=== PATIENT | male | born 1940 | race Caucasian/White ===

== ENCOUNTER → 2017-08-27 | Outpatient (CLI) | payer MEDICARE, BC ==
[~2017-08-27] MED LIST: CELEXA40 MG PO; FLOMAX0.4 MG PO; HYDROCODON-ACE1 EA12 PO; HYDROCODON-ACE1 EACH PO; KEFLEX500 MG PO; LEVAQUIN500 MG PO; MIRALAX17 GM PO; MULTI-BETIC TA1 EACH PO; NORCO 10-325 T1 EACH PO; PYRIDIUM200 MG PO; TOBREX5 ML OP
== END ==
LOC: CARD 14:02
PROVIDERS: ATTEND Family Medicine
DX: R20.8 Other disturbances of skin sensation (principal); I73.9 Peripheral vascular disease, unspecified
CPT/HCPCS: 93922; 93925

== ENCOUNTER → 2018-01-02 | Outpatient (CLI) | payer MEDICARE, BC ==
--- NOTE | 2018-01-02 12:47 | Diagnostic Imaging Report ---
EXAM: ABDOMEN COMP INCL UPR or DECUB, DATE: 01/02/2018 11:55 AM INDICATION: Abdominal distention, shortness of breath COMPARISON: None FINDINGS: LINES/TUBES: None BOWEL PATTERN: No evidence for obstruction. SOFT TISSUES: No abnormal calcifications. No mass effect. No free air under the diaphragm or concerning air-fluid levels within the visualized abdomen on upright view. LUNG BASES: Retrocardiac opacity. BONES: No acute findings. IMPRESSION: Nonobstructive bowel gas pattern. Retrocardiac opacity which can be further evaluated with dedicated chest radiograph. Signed by: DR. Simon Ramos MD on 01/02/2018 12:43 PM
== END ==
LOC: RAD 11:42
PROVIDERS: ATTEND Family Medicine
DX: R14.0 Abdominal distension (gaseous) (principal)

== ENCOUNTER → 2018-09-28 | Outpatient (CLI) | payer MEDICARE, OTHER ==
[~2018-09-28] MED LIST changes: +IOPAMIDOL 370 MG/ML 200 ML INFUS..BTL INJ ONE; +SODIUM CHLORIDE 0.9% 250ML 250 ML ONE
[2018-09-28 13:08] LABS: BLOOD UREA NITROGEN 20 mg/dL (7-26); BUN/CREATININE RATIO 23 (6-25); CREATININE, SERUM 0.88 mg/dL (0.72-1.25); EST GLOMERULAR FILTRATION RATE > 60 ML/MIN (60-)
--- NOTE | 2018-09-28 15:10 | Diagnostic Imaging Report ---
EXAMINATION: CT of the abdomen and pelvis with and without contrast. TECHNIQUE: Spiral CT images of the abdomen and pelvis were performed from the lung bases to the lesser trochanters before and after the intravenous administration of 100 cc Isovue-370. Imaging was performed in the prone position with expiratory phase per hematuria protocol. Coronal and sagittal reformatted images were obtained. COMPARISON: CT abdomen and pelvis without contrast 05/06/2017. CLINICAL HISTORY:Asymptomatic microscopic hematuria DISCUSSION: ABDOMEN/PELVIS: LOWER THORAX:Subsegmental atelectasis versus fibrotic change in the dependent lingula and right middle lobe. HEPATOBILIARY: No focal hepatic lesions. No intra-or extrahepatic biliary ductal dilation. Gallbladder has been removed. SPLEEN: No splenomegaly. PANCREAS: No focal masses or ductal dilatation. ADRENALS: No adrenal nodules. KIDNEYS/URETERS: Right renal pelvic calculus has increased in size, now measuring approximately 12 mm transversely (previously 7 mm). No additional renal, ureteral, or bladder calculi. No renal mass lesions. Mild right hydronephrosis without calyceal blunting. Excretory phase images show no additional filling defects in the upper collecting systems, proximal left ureter, right ureter, or urinary bladder. The distal left ureter is not opacified, presumably related to scan timing. No periureteral mass or inflammation is appreciated. PELVIC ORGANS/BLADDER: The prostate is enlarged, measuring 5.5 cm transversely, with mass effect upon the bladder base. The urinary bladder is otherwise unremarkable. PERITONEUM/RETROPERITONEUM: No ascites or pneumoperitoneum. LYMPH NODES: No pelvic sidewall, retroperitoneal, or mesenteric lymphadenopathy. VESSELS: Abdominal aorta, major branch vessels, and iliac arterial systems are patent with calcified and noncalcified atherosclerotic plaque. No abdominal aortic aneurysm. GI TRACT: The large bowel shows no evidence of distention or wall thickening. Sigmoid and descending colon diverticula without adjacent inflammatory change. Normal appendix. No small bowel dilatation to suggest obstruction. BONES AND SOFT TISSUE: No bony destructive lesions. Small fat-containing umbilical hernia. IMPRESSION: Right ureteropelvic junction calculus has increased in size, now measuring 11 mm, with mild hydronephrosis. No additional renal, ureteral, or bladder calculi or collecting system filling defects. Prostatomegaly with mass effect upon the bladder base. Additional findings include atherosclerotic vascular disease and large bowel diverticulosis without findings of diverticulitis. Signed by: Dr. Edward Rm M.D. on 09/28/2018 3:07 PM
== END ==
LOC: CT 12:10
PROVIDERS: ATTEND Urology
DX: R31.21 Asymptomatic microscopic hematuria (principal)
CPT/HCPCS: 36415; 74178; 82565; 84520; J7050; Q9967

== ENCOUNTER → 2018-11-13 | Day surgery (SDC) | payer MEDICARE, OTHER ==
[2018-11-11 12:32] LABS: BASOPHILS % 0.6 % (0.0-1.0); EOSINOPHILS # (AUTO) 0.4 (0.0-0.4); EOSINOPHILS % 5.3 % (0.0-6.0); HEMATOCRIT 42.8 % (38.2-49.6); HEMOGLOBIN 14.6 g/dL (14.0-18.0); MEAN CORPUSCULAR HEMOGLOBIN 31.5 pg (28-32); MEAN CORPUSCULAR HGB CONC 34.1 g/dL (31-35); MEAN CORPUSCULAR VOLUME 92.4 fL (81-99); MONOCYTES # (AUTO) 0.6 (0.2-0.8); MONOCYTES % 8.7 % (4.4-11.3); PLATELET COUNT 253 x10e3/uL (140-360); RED BLOOD COUNT 4.63 x10e6/uL (4.3-5.7); RED CELL DISTRIBUTION WIDTH 13.4 % (11.7-14.4)
--- NOTE | 2018-11-11 12:50 | Diagnostic Imaging Report ---
EXAM: CHEST 2 VIEWS, PA and lateral DATE: 11/11/2018 Time stamp on exam: 11:51 AM INDICATION: Preoperative for a urologic procedure COMPARISON: None FINDINGS: LINES/TUBES: None LUNGS: No consolidations or edema. PLEURA: No effusions or pneumothorax. HEART AND MEDIASTINUM: Normal size and contour. BONES AND SOFT TISSUES: No acute findings. Osteophyte in the lower thoracic spine. IMPRESSION: No acute thoracic abnormality. Signed by: Dr. Jimbo Hair DO on 11/11/2018 12:47 PM
[~2018-11-13] MED LIST changes: +B&O 60MG R/S 60 MG SUPP PR ONE; +CEFTRIAXONE SOD 1 GM/NS 50 ML 50 ML IV ONE; +CYMBALTA60 MG PO; +DESFLURANE 240 ML BTL INH ONE; +DEXAMETHASONE SOD PHOS INJ 4 MG/ML VIAL ONE; +FENTANYL CITRATE/PF 100MCG/2 ML INJ ONE; +GABAPENTIN300 MG PO; +HYDROCODON-ACE1 EAC9 PO; -IOPAMIDOL 370 MG/ML 200 ML INFUS..BTL INJ ONE; +IOPAMIDOL 610MG/1ML 300 MG/ML VIAL IV ONE; +LIDOCAINE HCL 2% LOCAL INJ 5 ML SDV VIAL INJ ONE; +LYRICA50 MG; +METOCLOPRAMIDE HCL 10 MG/2ML VIAL ONE; +MIDAZOLAM HCL 2 MG/2 ML VIAL ONE; +ONDANSETRON HCL INJ 2MG/ML 2ML 2 MG/ML VIAL ONE; +PROPOFOL IV EMULSION 10 MG/ML 20 ML VIAL ONE; -SODIUM CHLORIDE 0.9% 250ML 250 ML ONE
--- OUTSIDE RECORDS SUMMARY | 2018-11-13 05:56 | XMS REPORT ---
Author Author [facility] Address Unknown Phone Unavailable Care Team Providers Care Counter Waiter Name Role Phone CECILIA SOL Unavailable Unavailable REEMA KAHN Unavailable Unavailable Problems This patient has no known problems. Allergies, Adverse Reactions, Alerts This patient has no known allergies or adverse reactions. Medications This patient has no known medications. Results Test Description Test Time Test Comments Text Results Atomic Results Result Comments CHEST 2 VIEWS 2018-11-11 12:44:00 [place] [address] Patient Name: YAAKOV PEREZ MR #: [id number] : 1940 Age/Sex: 78/M Req #: [id number] Adm Physician: Ordered by: CECILIA SOL MD Report #: [id number] Location: OR Room/Bed: Procedure: [id number] DX/CHEST 2 VIEWS Exam Date: Exam Time: REPORT STATUS: Signed EXAM: CHEST 2 VIEWS, PA and lateral DATE: 11/11/2018 Time stamp on exam: 11: 51 AM INDICATION: Preoperative for a urologic procedure COMPARISON: None FINDINGS: LINES/TUBES: None LUNGS: No consolidations or edema. PLEURA: No effusions or pneumothorax. HEART AND MEDIASTINUM: Normal size and contour. BONES AND SOFT TISSUES: No acute findings. Osteophyte in the lower thoracic spine. IMPRESSION: No acute thoracic abnormality. Signed by: Dr. Lisa Hair DO on 11/11/2018 12:47 PM Dictated By: LISA HAIR DO 1247 Transcribed By: LORE on 11/11/18 1247 COPY TO: CECILIA SOL MD CT ABDOMEN/PELVIS WOW 2018-09-28 14:49:00 [place] [address] Patient Name: YAAKOV PEREZ MR #: [id number] : 1940 Age/Sex: 78/M Req #: [id number] Adm Physician: Ordered by: CECILIA SOL MD Report #: [id number] Location: CT Room/Bed: Procedure: [id number] CT/CT ABDOMEN/PELVIS WOW Exam Date: 09/28/18 Exam Time: 1330 REPORT STATUS: Signed EXAMINATION: CT of the abdomen and pelvis with and without contrast. TECHNIQUE: Spiral CT images of the abdomen and pelvis were performed from the lung bases to the lesser trochanters before and after the intravenous administration of 100 cc Isovue-370. Imaging was performed in the prone position with expiratory phase per hematuria protocol. Coronal and sagittal reformatted images were obtained. COMPARISON: CT abdomen and pelvis without contrast 05/06/2017. CLINICAL HISTORY:Asymptomatic microscopic hematuria DISCUSSION: ABDOMEN/PELVIS: LOWER THORAX:Subsegmental atelectasis versus fibrotic change in the dependent lingula and right middle lobe. HEPATOBILIARY: No focal hepatic lesions. No intra-or extrahepatic biliary ductal dilation. Gallbladder has been removed. SPLEEN: No splenomegaly. PANCREAS: No focal masses or ductal dilatation. ADRENALS: No adrenal nodules. KIDNEYS/URETERS: Right renal pelvic calculus has increased in size, now measuring approximately 12 mm transversely (previously 7 mm). No additional renal, ureteral, or bladder calculi. No renal mass lesions. Mild right hydronephrosis without calyceal blunting. Excretory phase images show no additional filling defects in the upper collecting systems, proximal left ureter, right ureter, or urinary bladder. The distal left ureter is not opacified, presumably related to scan timing. No periureteral mass or inflammation is appreciated. PELVIC ORGANS/BLADDER: The prostate is enlarged, measuring 5.5 cm transversely, with mass effect upon the bladder base. The urinary bladder is otherwise unremarka ble. PERITONEUM/RETROPERITONEUM: No ascites or pneumoperitoneum. LYMPH NODES: No pelvic sidewall, retroperitoneal, or mesenteric lymphadenopathy. VESSELS: Abdominal aorta, major branch vessels, and iliac arterial systems are patent with calcified and noncalcified atherosclerotic plaque. No abdominal aortic aneurysm. GI TRACT: The large bowel shows no evidence of distention or wall thickening. Sigmoid and descending colon diverticula without adjacent inflammatory change. Normal appendix. No small bowel dilatation to suggest obstruction. BONES AND SOFT TISSUE: No bony destructive lesions. Small fat-containing umbilical hernia. IMPRESSION: Right ureteropelvic junction calculus has increased in size, now measuring 11 mm, with mild hydronephrosis. No additional renal, ureteral, or bladder calculi or collecting system filling defects. Prostatomegaly with mass effect upon the bladder base. Additional findings include atherosclerotic vascular disease and large bowel diverticulosis without findings of diverticulitis. Signed by: Dr. Nilson Small M.D. on 09/28/2018 3:07 PM Dictated By: NILSON SMALL MD 1507 Transcribed By: LORE on 09/28/18 1507 COPY TO: CECILIA SOL MD ABDOMEN COMP INCL UPR or 2018-01-02 12:41:00 [place] [address] Patient Name: YAAKOV PEREZ MR #: [id number] : 1940 Age/Sex: 77/M Req #: [id number] Adm Physician: Ordered by: REEMA KAHN MD Report #: [id number] Location: RAD Room/Bed: Procedure: [id number] DX/ABDOMEN COMP INCL UPR or DECUB Exam Date: 01/02/18 Exam Time: 1153 REPORT STATUS: Signed EXAM: ABDOMEN COMP INCL UPR or DECUB, DATE: 01/02/2018 11:55 AM INDICATION: Abdominal distention, shortness of breath COMPARISON: None FINDINGS: LINES/TUBES: None BOWEL PATTERN: No evidence for obstruction. SOFT TISSUES: No abnormal calcifications. No mass effect. No free air under the diaphragm or concerning air-fluid levels within the visualized abdomen on upright view. LUNG BASES: Retrocardiac opacity. BONES: No acute findings. IMPRESSION: Nonobstructive bowel gas pattern. Retrocardiac opacity which can be further evaluated with dedicated chest radiograph. Signed by: DR. Simon Sheehan MD on 01/02/2018 12:43 PM Dictated By: SIMON SHEEHAN MD 124 Transcribed By: LORE on 01/02/18 1243 COPY TO: REEMA KAHN MD CT ABDOMEN/PELVIS [place] [address] Patient Name: YAAKOV PEREZ MR #: [id number] : 1940 Age/Sex: 76/M Req #: [id number] Adm Physician: Ordered by: CECILIA SOL MD Report #: [id number] Location: CT Room/Bed: Procedure: [id number] CT/CT ABDOMEN/PELVIS WO Exam Date: 05/06/17 Exam Time: 1320 REPORT STATUS: Signed PROCEDURE: CT ABDOMEN AND PELVIS WITHOUT CONTRAST TECHNIQUE: The abdomen and pelvis were scanned utilizing a multidetector helical scanner from the diaphragm to the lesser trochanter. No oral or intravenous contrast was administered per renal stone protocol. Coronal and sagittal multiplanar reformations were obtained. COMPARISON: CT abdomen and pelvis without contrast 10/25/2013. INDICATIONS: RIGHT FLANK PAIN FINDINGS: ABSENCE OF INTRAVENOUS CONTRAST DECREASES SENSITIVITY FOR DETECTION OF FOCAL LESIONS AND VASCULAR PATHOLOGY. LOWER THORAX: Minimal subsegmental atelectasis or scar in the dependent lower lobes, right greater than left. No pleural or pericardial effusion. HEPATOBILIARY: No focal hepatic lesions. No biliary ductal dilatation. SPLEEN: No splenomegaly. PANCREAS: No focal masses or ductal dilatation. ADRENALS: No adrenal nodules. KIDNEYS/URETERS: 6-7 mm calculus lies within the right renal pelvis, seen on series 3 image 65. No hydronephrosis. No additional renal, ureteral, or bladder calculi. Nonspecific bilateral perinephric fat stranding is unchanged compared to the prior examination. No gross renal mass lesion. PELVIC ORGANS/BLADDER: The urinary bladder is unremarkable. The prostate is enlarged, measuring 5.4 cm in transverse dimension. Coarse calcification in the central aspect of the prostate. Seminal vesicles are unremarkable. PERITONEUM / RETROPERITONEUM: No ascites. No pneumoperitoneum. LYMPH NODES: No pelvic sidewall, retroperitoneal, or mesenteric lymphadenopathy. VESSELS: There is atherosclerotic calcification of the abdominal aorta and major branch vessels, without aneurysmal dilatation. There is a single left renal artery and 2 right renal arteries. GI TRACT: The large bowel is notable for multiple diverticula along the course of the sigmoid colon, without wall thickening or adjacent inflammatory change. The large bowel otherwise shows no evidence of distention or wall thickening. The appendix is normal. No small bowel dilatation to suggest obstruction. BONES AND SOFT TISSUES: Midline umbilical hernia contains omental fat and a short segment of small bowel, without evidence of obstruction or inflammatory change. Otherwise no focal soft tissue abnormalities. 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 IMPRESSION: 6-7 mm nonobstructing right renal calculus. Small umbilical hernia contains a short segment of small bowel without evidence of obstruction or inflammatory change. Atherosclerotic vascular disease. Sigmoid diverticulosis without evidence of diverticulitis. Dictated by: Nilson Small M.D. on 05/06/2017 at 13:55 Electronically approved by: Nilson Small M.D. on 05/06/2017 at 13:55 Dictated By: NILSON SMALL MD 1355 Transcribed By: SOLIS on 05/06/17 1355 COPY TO: CECILIA SOL MD ABDOMEN-1VIEW (KUB) [place] [address] Patient Name: YAAKOV PEREZ MR #: [id number] : 1940 Age/Sex: 76/M Req #: [id number] Adm Physician: Ordered by: CECILIA SOL MD Report #: [id number] Location: [facility] Room/Bed: Procedure: [id number] DX/ABDOMEN-1VIEW (KUB) Exam Date: 04/15/17 Exam Time: 1015 REPORT STATUS: Signed PROCEDURE: ABDOMEN-1VIEW (KUB) TECHNIQUE: Supine AP abdomen totaling 2 radiographs INDICATION: Calculus of kidney COMPARISON: [facility], DX, ABDOMEN-1VIEW (KUB), 09/30/2016, 10:12. FINDINGS: See conclusion. CONCLUSION: 1. 0.9 and 0.5 cm right inferior pole stones. 2. No calcifications over the left kidney. 3. Left pelvic phlebolith. 4. Normal bowel gas pattern. 5. Intact skeleton. Dictated by: Mariajose Murillo M.D. on 04/15/2017 at 10:48 Electronically approved by: Mariajose Murillo M.D. on 04/15/2017 at 10:48 Dictated By: MARIAJOSE MURILLO MD 1048 Transcribed By: SOLIS on 04/15/178 COPY TO: CECILIA SOL MD
--- OUTSIDE RECORDS SUMMARY | 2018-11-13 05:56 | XMS REPORT | Clinical Summary ---
Author Author [facility] Address Unknown Phone Unavailable Care Team Providers Care Neurology Technician Name Role Phone Henrry Ruiz MD PCP Allergies No Known Allergies Medications End Date Status Medication Sig Dispensed Refills Start Date Active HYDROcodone-acetaminophen TAKE 1 T PO 0 (NORCO 10-325) 10-325 mg QID PRN P 6 per tablet Active Problems Problem Noted Date Bimalleolar ankle fracture 02/13/2016 Immunizations Name Dates Previously Given Next Due Influenza Whole 03/07/2017 Social History Date Tobacco Use Types Packs/Day Years Used Never Smoker Sex Assigned at Date Recorded Not on file Industry Job Start Date Occupation Not on file Not on file Not on file Travel End Travel History Travel Start No recent travel history available. Last Filed Vital Signs Not on file Plan of Treatment Health Maintenance Due Date Last Done Comments COLONOSCOPY SCREENING 1992 SHINGLES VACCINES (#1) 1992 65+ PNEUMOCOCCAL VACCINE 2007 (1 of 2 - PCV13) INFLUENZA VACCINE 12/24/2018 03/07/2017 Results Not on fileafter 11/12/2017 Insurance Type Payer Benefit Subscriber ID Effective Phone Address Plan / Dates Group Medicare MEDICARE MEDICARE xxxxxxxxxx 2007-P [place], PART A AND resent [place] B PPO BCBS BCBS xxxxxxxxxxxx 2015- CHOICE Present PPO/AMY LORENZO PPO Advance Directives Patient has advance care planning documents on file. For more information, russell obrien contact: Harsh Mendosa [address] [place] [address]
[2018-11-13 10:26] VITALS: BP 136/71
--- NOTE | 2018-12-24 22:47 | Operative Report ---
DATE OF PROCEDURE: 11/13/2018 SURGEON: Fracisco Miles MD PREOPERATIVE DIAGNOSES: 1. Right nephrolithiasis. 2. Impending renal colic. POSTOPERATIVE DIAGNOSES: 1. Right nephrolithiasis. 2. Impending renal colic. OPERATION PERFORMED: 1. Right-sided extracorporeal shockwave lithotripsy (separate staged procedure from separate approach for the nephrolithiasis). 2. Cystourethroscopy with bilateral ureteral catheterization, retrograde ureteropyelography, and insertion of right indwelling ureteral stent (separate procedure performed to relieve the renal colic). 3. Interpretation of retrograde ureteropyelography. ANESTHESIA: General. COMPLICATIONS: None. CLINICAL SUMMARY: Renato Youngblood is a 78-year-old man with urolithiasis. He was brought for the above procedures. He is aware of the risks of bleeding, infection, injury to adjacent structures, need for additional procedures, and elected to proceed. OPERATIVE PROCEDURE IN DETAIL: Informed consent was verified. Renato Youngblood was properly identified, taken to the operating room, placed on the lithotripsy table in supine position. Anesthesia was uneventfully begun. The patient's right nephrolithiasis was localized with biplanar fluoroscopy. A total of 3000 shocks were delivered to the 12 mm stone that was located in the mid calyx. Fragmentation was noted. The patient was then carefully and gently repositioned in dorsal lithotomy position with all pressure points well padded. His genitalia were prepared and draped in usual sterile fashion. The cystoscope sheath with the visual obturator in place was atraumatically inserted into the patient's urethra, it was guided down the unremarkable urethra through the normal sphincteric region, through the prostate bed, which was significant for visual obstructing BPH and into the patient's bladder. Panendoscopy revealed some tracheal trabeculations, but normally positioned configured ureteral orifices were identified. A ureteral catheter was used to cannulate each ureter and retrograde ureteral pyelograms were performed. We then placed a guidewire into the right ureter. We identified a small stone that was already emerging at the ureteral orifice. With cystoscopic fluoroscopic guidance, a right-sided indwelling ureteral stent was then placed, it was coiled in the patient's kidney as well as the patient's bladder. The retaining suture was cut short. Interpretation of retrograde ureteropyelography contrast was instilled in a retrograde fashion bilaterally. On the right hand side, there were filling defects corresponding to the stone and blood clots. The stent was in good position, coiled the patient's kidneys as well as the patient's bladder at the end of the case. The left hand side exhibited no hydronephrosis, calyces that were delicate, no filling defects and unobstructed drainage was observed fluoroscopically. A belladonna and opium suppository were placed. The patient was uneventfully reversed from anesthesia and taken to recovery room in stable condition. Explicit postop instructions were given. We will plan on returning the patient to the operating room after sometime to remove the stent and perform right ureteroscopy and hopefully render the patient stent free and stone free. Fracisco Miles MD [place]/MODL /[id number]
== END | disposition home or self-care (01) ==
LOC: OR 05:50
PROVIDERS: ATTEND Urology
DX: N20.0 Calculus of kidney (principal); N40.0 Benign prostatic hyperplasia without lower urinary tract symptoms; F32.9 Major depressive disorder, single episode, unspecified; I44.0 Atrioventricular block, first degree; I71.4 Abdominal aortic aneurysm, without rupture; M54.5 Low back pain; M79.606 Pain in leg, unspecified; R42 Dizziness and giddiness; Z01.810 Encounter for preprocedural cardiovascular examination; Z01.812 Encounter for preprocedural laboratory examination; Z01.818 Encounter for other preprocedural examination; Z87.891 Personal history of nicotine dependence
CPT/HCPCS: 36415; 50590; 52332; 71046; 85025; 93005; C1758; C2617; J0696; J1100; J2001; J2250; J2405; J2704; J2765; Q9967; J3010

== ENCOUNTER → 2018-12-18 | Day surgery (SDC) | payer MEDICARE, OTHER ==
[~2018-12-18] MED LIST changes: -DESFLURANE 240 ML BTL INH ONE; -METOCLOPRAMIDE HCL 10 MG/2ML VIAL ONE; -MIDAZOLAM HCL 2 MG/2 ML VIAL ONE; -ONDANSETRON HCL INJ 2MG/ML 2ML 2 MG/ML VIAL ONE; +SEVOFLURANE INHAL SOLN 250 ML PEN BTL ONE
--- OUTSIDE RECORDS SUMMARY | 2018-12-18 08:17 | XMS REPORT | Clinical Summary ---
Author Author [facility] Address Unknown Phone Unavailable Care Team Providers Care Crystal Attacher Name Role Phone Henrry Ruiz MD PCP [...] VACCINE 12/24/2018 03/07/2017 Results Not on fileafter 12/17/2017 Insurance Type Payer Benefit Subscriber ID Effective Phone Address Plan / Dates Group Medicare MEDICARE MEDICARE xxxxxxxxxx 2007-P [place], PART A AND resent [place] B PPO BCBS BCBS xxxxxxxxxxxx 2015- CHOICE Present PPO/AMY LORENZO PPO Advance Directives Patient has advance care planning documents on file. For more information, russell obrien contact: Harsh Menodsa [address] [place] [address]
--- NOTE | 2018-12-18 09:24 | Diagnostic Imaging Report ---
Exam: KUB - 2 views Clinical History: Preoperative Comparison: CT abdomen pelvis of 09/28/2018, KUB of 01/02/2018 Findings: Interval placement of right internal nephroureteral stent. There is an 8 mm calculus overlying the lower pole of the right kidney. No other calculi identified. Phleboliths in the pelvis. Nonobstructive bowel gas pattern. No free air. Degenerative changes of the lower lumbar spine. Impression: Interval placement of right internal nephroureteral stent. 8 mm right lower pole renal calculus. Signed by: Evgeny Lock MD on 12/18/2018 9:20 AM
[2018-12-18 13:30] VITALS: BP 150/82
--- NOTE | 2019-02-18 05:20 | Operative Report ---
DATE OF PROCEDURE: 12/18/2018 SURGEON: Fracisco Miles MD PREOPERATIVE DIAGNOSES: 1. Right nephrolithiasis. 2. Right hydronephrosis. 3. Right indwelling ureteral stent. POSTOPERATIVE DIAGNOSES: 1. Right nephrolithiasis. 2. Right hydronephrosis. 3. Right indwelling ureteral stent. OPERATION PERFORMED: Note these were all staged procedures as part of multi-staged and multi-step process in managing the patient's recurrent urolithiasis. 1. Cystourethroscopy with complicated removal of right indwelling ureteral stent (separate procedure performed with separate scope for the diagnosis of stent). 2. Repeated and recurrent right ureteral pyeloscopy with stone manipulation and extraction (separate procedure performed for numerous stones). 3. Radiological services for supervision and interpretation of ureteroscopy. 4. Interpretation of retrograde ureteropyelography. 5. Cystourethroscopy with insertion of right indwelling ureteral stent (separately performed to relieve the hydronephrosis). ANESTHESIA: General. COMPLICATIONS: None. CLINICAL SUMMARY: Renato Youngblood is a 78-year-old man, who underwent a stone procedure. He has a stent in place. He is brought for the above procedures. He is aware of the risks of bleeding, infection, injury to adjacent structures, need for additional procedures, and elected to proceed. OPERATIVE PROCEDURE IN DETAIL: Informed consent was verified. Renato Youngblood was properly identified and taken to the operative room and placed on the cystoscopy table in supine position. Anesthesia was uneventfully begun. The patient was then carefully gently repositioned in the dorsal lithotomy position with all pressure points well padded. His genitalia were prepared and draped in usual sterile fashion. The cystoscope sheath with the visual obturator in place was atraumatically inserted. The patient's urethra was guided unremarkably urethra through the normal sphincteric region through the prostate bed, which was significant for visually obstructing BPH. We entered the patient's bladder and drained it. Panendoscopy revealed trabeculations, but no tumors, no suspicious lesions. The stent was noted to be emerging from the right ureteral orifice. A guidewire was then placed alongside the stent and guided to the level of the patient's kidney. The stent was then grasped, completely removed, and discarded. Flexible ureteroscope was then brought up over the guidewire and guided up to the level of the patient's kidney. Panendoscopy revealed numerous stones. The guidewire was replaced. A flexible ureteroscopy sheath was utilized to protect the ureter. We performed numerous passes with the ureteroscope each time grasping small stone and extracting it. Once all stones that were large enough to be grasped were removed, the ureteroscope was withdrawn and with a cystoscopic fluoroscopic guidance, a right-sided indwelling ureteral stent was then placed and it was coiled in the patient's kidney as well as the patient's bladder. The retaining suture was cut short. Interpretation of retrograde ureteropyelography contrast was instilled in retrograde fashion bilaterally. There were no tumors and there were no obvious filling defects. There was some calyceal blunting noted. The stent was in good position and coiled in the patient's kidneys as well as the patient's bladder at the end of the case. The patient's bladder was drained. Cystoscope was withdrawn. Belladonna and opium suppository was placed and the patient was uneventfully reversed from anesthesia and taken to recovery room in stable condition. Explicit postoperative instructions were given. We will plan on returning to the operating room in several weeks to remove the patient's stent and evaluate for any residual stones and his present management. Fracisco Miles MD [facility]/MODL /[id number] cc: Henrry Ruiz MD
== END | disposition home or self-care (01) ==
LOC: OR 08:14
PROVIDERS: ATTEND Urology
DX: N20.0 Calculus of kidney (principal); Z46.6 Encounter for fitting and adjustment of urinary device; N13.30 Unspecified hydronephrosis; N40.1 Benign prostatic hyperplasia with lower urinary tract symptoms; N13.8 Other obstructive and reflux uropathy; N32.89 Other specified disorders of bladder
CPT/HCPCS: 52332; 52352; 74018; 74420; 88300; C1766; C2617; J0696; J1100; J2001; J2704; J3010; Q9967

== ENCOUNTER → 2018-12-30 | Day surgery (SDC) | payer MEDICARE, OTHER ==
[~2018-12-30] MED LIST changes: +MIDAZOLAM HCL 2 MG/2 ML VIAL ONE; +NALOXONE HCL INJ 0.4 MG/ML AMP ONE; +ONDANSETRON HCL INJ 2MG/ML 2ML 2 MG/ML VIAL ONE
--- OUTSIDE RECORDS SUMMARY | 2018-12-30 08:32 | XMS REPORT | Clinical Summary ---
Author Author [facility] Address Unknown Phone Unavailable Care Team Providers Care Admissions Coordinator Name Role Phone Henrry Ruiz MD PCP [...] VACCINE 12/24/2018 03/07/2017 Results Not on fileafter 12/29/2017 Insurance Type Payer Benefit Subscriber ID Effective Phone Address Plan / Dates Group Medicare MEDICARE MEDICARE xxxxxxxxxx 2007-P [place], PART A AND resent [place] B PPO BCBS BCBS xxxxxxxxxxxx 2015- CHOICE Present PPO/AMY LORENZO PPO Advance Directives Patient has advance care planning documents on file. For more information, russell obrien contact: Harsh Mendosa [address] [place] [address]
[2018-12-30 09:26] LABS: BASOPHILS % 0.5 % (0.0-1.0); EOSINOPHILS # (AUTO) 0.4 (0.0-0.4); EOSINOPHILS % 6.3 % (0.0-6.0); HEMATOCRIT 38.8 % (38.2-49.6); HEMOGLOBIN 13.4 g/dL (14.0-18.0); LYMPHOCYTES # (AUTO) 1.5 (1.0-3.2); LYMPHOCYTES % 25.2 % (18.0-39.1); MEAN CORPUSCULAR HEMOGLOBIN 31.3 pg (28-32); MEAN CORPUSCULAR HGB CONC 34.5 g/dL (31-35); MEAN CORPUSCULAR VOLUME 90.7 fL (81-99); MONOCYTES # (AUTO) 0.7 (0.2-0.8); MONOCYTES % 11.3 % (4.4-11.3); NEUTROPHILS # (AUTO) 3.4 (2.1-6.9); NEUTROPHILS % 56.5 % (38.7-80.0); PLATELET COUNT 231 x10e3/uL (140-360); RED BLOOD COUNT 4.28 x10e6/uL (4.3-5.7); RED CELL DISTRIBUTION WIDTH 13.2 % (11.7-14.4)
--- NOTE | 2018-12-30 09:48 | Diagnostic Imaging Report ---
Exam: KUB - 2 views Clinical History: Preoperative, Stent removal Comparison: None Findings: Right internal nephroureteral stent remains in good position. No radiographically apparent renal calculi. Nonobstructive bowel gas pattern. No free air. The osseous structures appear unremarkable. Phleboliths in the pelvis. Impression: No radiographically apparent renal calculi. Right internal nephroureteral stent in place. Signed by: Evgeny Lock MD on 12/30/2018 9:45 AM
[2018-12-30 13:00] VITALS: BP 121/57
--- NOTE | 2019-02-19 05:03 | Operative Report ---
DATE OF PROCEDURE: 12/30/2018 SURGEON: Fracisco Miles MD PREOPERATIVE DIAGNOSES: 1. Right nephrolithiasis. 2. Right indwelling ureteral stent. POSTOPERATIVE DIAGNOSES: 1. Right nephrolithiasis. 2. Right indwelling ureteral stent. OPERATIONS PERFORMED: Note these were all staged procedures as part of multi-staged and multi-step process of managing the patient's urolithiasis. 1. Cystourethroscopy with complicated removal of right indwelling ureteral stent (separate procedure performed for the diagnosis of the stent). 2. Right ureteroscopy with stone manipulation (separate procedure performed for the small right lower pole residual stone). 3. Radiological Services with supervision and interpretation of ureteroscopy. 4. Interpretation of retrograde ureteropyelography. ANESTHESIA: General. COMPLICATIONS: None. CLINICAL SUMMARY: Renato Youngblood is a 78-year-old man, who underwent a stone procedure in conjunction with ureteral stenting. He is brought for the above procedures. He is aware of the risks of bleeding, infection, injury to adjacent structures, need for additional procedures, and elected to proceed. OPERATIVE PROCEDURE IN DETAIL: Informed consent was verified. Renato Youngblood was properly identified, taken to the operating room, placed on the cystoscopy table in supine position. Anesthesia was uneventfully begun. The patient was then carefully and gently repositioned in dorsal lithotomy position. All pressure points were well padded. His genitalia were prepared and draped in usual sterile fashion. The cystoscope sheath with the visual obturator in place was atraumatically inserted into the patient's urethra, was guided unremarkably through urethra, passed through the normal sphincteric region through the prostate bed, which was significant for BPH and into the patient's bladder where stent was emerging from the right ureteral orifice. There was some mucosal erythema around the stent, but there were no suspicious mucosal lesions. There were no tumors. There were no stones. A guidewire was then placed into the right ureter and guided to the level of the patient's kidney. The stent was then grasped, completely removed and discarded. Semi-rigid ureteroscopy was then performed alongside the guidewire. The ureteroscope was brought up into the right distal ureter. There were no tumors. There were no stones. There were no diverticula. Contrast was injected performing retrograde pyelograms. Flexible ureteroscope was then placed over the guidewire and guided at the level of the patient's kidney. The panendoscopy of the intrarenal collecting system revealed Corona's plaques throughout the kidney. There were no suspicious mucosal lesions. There were no tumors. One small stone was noted in the lower pole calyx. It was grasped with a Nitinol tipless basket and atraumatically extracted, carefully examining the ureter as we exited, which exhibited no stones, no strictures, no suspicious lesions. The patient's bladder was drained. Cystoscope was withdrawn and the patient was uneventfully reversed from anesthesia and taken to recovery room in stable condition. Interpretation of retrograde ureteropyelography contrast was instilled under direct retrograde fashion, but on the right-hand side by the ureteroscope, there was mild fullness of the collecting system. There were no tumors. There were no stones. There were no suspicious mucosal lesions. There were no filling defects. Unobstructed drainage was observed fluoroscopically. There were no complications to the procedure. He tolerated the procedure well. Explicit postop instructions were given. We will follow the patient up in the office and of course on an indefinite basis. Fracisco MD Jd [facility]/MODL /[id number] cc: Henrry Ruiz MD
== END | disposition home or self-care (01) ==
LOC: OR 08:29
PROVIDERS: ATTEND Urology
DX: N20.2 Calculus of kidney with calculus of ureter (principal); Z46.6 Encounter for fitting and adjustment of urinary device; Z01.812 Encounter for preprocedural laboratory examination; F32.9 Major depressive disorder, single episode, unspecified; M54.9 Dorsalgia, unspecified; R53.1 Weakness; Z96.0 Presence of urogenital implants; N40.0 Benign prostatic hyperplasia without lower urinary tract symptoms
CPT/HCPCS: 36415; 52315; 74018; 74420; 85025; 88300; C1758; J0696; J1100; J2001; J2250; J2310; J2405; J2704; J3010; Q9967

== ENCOUNTER → 2019-07-02 | Outpatient (CLI) | payer MEDICARE, OTHER ==
[~2019-07-02] MED LIST changes: -B&O 60MG R/S 60 MG SUPP PR ONE; -CEFTRIAXONE SOD 1 GM/NS 50 ML 50 ML IV ONE; -DEXAMETHASONE SOD PHOS INJ 4 MG/ML VIAL ONE; -FENTANYL CITRATE/PF 100MCG/2 ML INJ ONE; -IOPAMIDOL 610MG/1ML 300 MG/ML VIAL IV ONE; -LIDOCAINE HCL 2% LOCAL INJ 5 ML SDV VIAL INJ ONE; -MIDAZOLAM HCL 2 MG/2 ML VIAL ONE; -NALOXONE HCL INJ 0.4 MG/ML AMP ONE; -ONDANSETRON HCL INJ 2MG/ML 2ML 2 MG/ML VIAL ONE; -PROPOFOL IV EMULSION 10 MG/ML 20 ML VIAL ONE; -SEVOFLURANE INHAL SOLN 250 ML PEN BTL ONE
--- NOTE | 2019-07-02 14:22 | Diagnostic Imaging Report ---
ELBOW RIGHT COMPLETE - 3 views HISTORY: Pain. COMPARISON: None available. FINDINGS: Bones: No acute displaced fracture. Osseous alignment is within normal limits. Joints: Mild degenerative changes of the ulnotrochlear joint. Soft tissues: Minimal ulnar bursitis. Small ulnar enthesophyte. IMPRESSION: No acute radiographic abnormality. Signed by: Angel Elizabeth MD on 07/02/2019 2:19 PM
== END ==
LOC: RAD 12:47
PROVIDERS: ATTEND Family Medicine
DX: M25.521 Pain in right elbow (principal)

== ENCOUNTER → 2020-01-11 | Outpatient (CLI) | payer MEDICARE, OTHER ==
--- NOTE | 2020-01-11 09:00 | Diagnostic Imaging Report ---
EXAM: US AORTA RETROPERITONEAL HOLLIDAY DATE: 01/11/2020 8:04 AM INDICATION: Abdominal aortic aneurysm COMPARISON: CT abdomen and pelvis of 09/28/2018 TECHNIQUE: Transverse and longitudinal bahena scale and color doppler sonographic images of the upper abdomen were obtained. FINDINGS: Aorta: No abdominal aortic aneurysm. -Proximal aorta: 1.8 x 1.7cm -Mid aorta: 2.0 x 1.6cm -Distal aorta: 1.7 x 1.5 cm Inferior Vena Cava: Visualized portions are normal FREE FLUID: None IMPRESSION: No abdominal aortic aneurysm. Signed by: Evgeny Lock MD on 01/11/2020 8:57 AM
== END ==
LOC: US 07:38
PROVIDERS: ATTEND Family Medicine
DX: I71.4 Abdominal aortic aneurysm, without rupture (principal)
CPT/HCPCS: 76770

== ENCOUNTER → 2020-04-12 | Outpatient (CLI) | payer MEDICARE ==
--- NOTE | 2020-04-12 15:19 | Diagnostic Imaging Report ---
X-ray 3 views right and left knees History: Chronic pain Findings: Osteopenia. Tricompartmental osteoarthritic change. Impression: Mild osteoarthritis of both knees. Most pronounced in the medial compartment as expected. Signed by: Evelio Chang MD on 04/12/2020 3:15 PM
--- NOTE | 2020-04-12 15:57 | Diagnostic Imaging Report ---
MRI SPINE LUMBAR WO HISTORY: Chronic low back pain COMPARISON: Abdominal radiographs 12/30/2018 TECHNIQUE: Sagittal T1, sagittal T2, sagittal STIR, axial T2, coronal T2, and axial proton density weighted images of the lumbar spine were obtained without contrast. DISCUSSION: Number of non-rib bearing lumbar vertebral bodies: 5. Alignment: Normal lordosis. Mild lumbar dextroscoliosis is centered at approximately L3. Vertebrae: No fractures, or neoplasm. Conus medullaris: Normal, ends at L2. Cauda equina: No masses or arachnoiditis. Posterior paraspinal muscles: Well preserved. No signal abnormalities. Soft tissues: No signal abnormalities. Multilevel advanced disc degeneration is most prominent at L5-S1. Associated nonspecific multilevel inflammatory endplate changes (type I Modic change) is most prominent at the left at L3-L4. T12-L1: Patent canal and foramina. L1-L2: Patent canal and foramina. L2-L3: Mild canal stenosis due to disc bulge and ligamentum flavum thickening is slightly accentuated by epidural lipomatosis. Mild bilateral foraminal stenoses due to disc bulge and facet arthrosis. L3-L4: Moderate canal stenosis due to disc bulge and ligamentum flavum thickening is accentuated by epidural lipomatosis. The thecal sac and both lateral recesses are effaced, left greater than right. Mild right and moderate to severe left foraminal stenoses due to disc bulge and facet arthrosis. There is periarticular edema along the bilateral L3-L4 facet joints. L4-L5: Grade 1 anterolisthesis of L4 on L5 due to bilateral L4-L5 facet arthrosis. Moderate right foraminal stenosis due to uncovered disc bulge and facet arthrosis. No significant canal or left foraminal stenosis. There is mild periarticular edema along the right L4-L5 facet joint. L5-S1: Moderate bilateral foraminal stenoses due to disc bulge and facet arthrosis. No significant canal stenosis. IMPRESSION: 1. Multilevel advanced disc degeneration, most prominent at L5-S1, with mild lumbar dextroscoliosis. Associated nonspecific multilevel inflammatory endplate changes (type I Modic change) is most prominent at the left at L3-L4. 2. Grade 1 anterolisthesis of L4 on L5 due to facet arthrosis. 3. Moderate L3-L4 and mild L2-L3 degenerative canal stenoses accentuated by epidural lipomatosis. 4. Multilevel degenerative foraminal stenoses - severe on the left at L3-L4; moderate on the right at L4-L5; moderate bilaterally at L5-S1. 5. Suspected mild bilateral L3-L4 and right L4-L5 facet synovitis. Signed by: Dr. Omar Sims M.D. on 04/12/2020 3:54 PM
== END ==
LOC: MRI 13:46
PROVIDERS: ATTEND Student in an Organized Health Care Education/Training Program
DX: M25.562 Pain in left knee (principal); M25.561 Pain in right knee; M54.17 Radiculopathy, lumbosacral region
CPT/HCPCS: 72148

== ENCOUNTER 2020-10-05 21:40 | Observation (INO) | payer MEDICARE, OTHER ==
[~2020-10-05] VITALS: Ht 185.4 cm; Wt 93.4 kg
[2020-10-05 22:00] LABS: BASOPHILS # (AUTO) 0.1 (0.0-0.1); BASOPHILS % 0.8 % (0.0-1.0); EOSINOPHILS # (AUTO) 0.5 (0.0-0.4); EOSINOPHILS % 7.1 % (0.0-6.0); HEMATOCRIT 40.3 % (38.2-49.6); HEMOGLOBIN 13.5 g/dL (14.0-18.0); LYMPHOCYTES # (AUTO) 2.7 (1.0-3.2); LYMPHOCYTES % 40.7 % (18.0-39.1); MEAN CORPUSCULAR HEMOGLOBIN 30.3 pg (28-32); MEAN CORPUSCULAR HGB CONC 33.5 g/dL (31-35); MEAN CORPUSCULAR VOLUME 90.6 fL (81-99); MONOCYTES # (AUTO) 0.8 (0.2-0.8); MONOCYTES % 11.5 % (4.4-11.3); NEUTROPHILS # (AUTO) 2.6 (2.1-6.9); NEUTROPHILS % 39.7 % (38.7-80.0); PLATELET COUNT 239 x10e3/uL (140-360); RED BLOOD COUNT 4.45 x10e6/uL (4.3-5.7); RED CELL DISTRIBUTION WIDTH 13.9 % (11.7-14.4)
[2020-10-05] MEDS ORDERED: ASPIRIN 81 MG CHEW TAB PO ONE (22:00)
[2020-10-05] MEDS: MORPHINE SULFATE INJ 4 MG/ML INJ 1ML IV PRN (22:15)
[2020-10-05] MEDS: ONDANSETRON HCL INJ 2MG/ML 2ML 2 MG/ML VIAL IV PRN (22:15)
[2020-10-05 22:18] LABS: ALANINE AMINOTRANSFERASE 35 IU/L (0-55); ALBUMIN/GLOBULIN RATIO 1.3 (0.8-2.0); ALKALINE PHOSPHATASE 92 IU/L (40-150); BLOOD UREA NITROGEN 15 mg/dL (7-26); BUN/CREATININE RATIO 15 (6-25); CALCIUM 10.4 mg/dL (8.4-10.2); CARBON DIOXIDE 28 mmol/L (22-29); CHLORIDE 104 mmol/L (98-107); CREATINE KINASE 263 IU/L (30-200); CREATININE, SERUM 0.98 mg/dL (0.72-1.25); EST GLOMERULAR FILTRATION RATE > 60 ML/MIN (60-); GLUCOSE 167 mg/dL (74-118); SODIUM 140 mmol/L (136-145)
[2020-10-05] MEDS ORDERED: SODIUM CHLORIDE 0.9% 100 ML ONE (22:44)
[2020-10-05] MEDS ORDERED: IOPAMIDOL 370 MG/ML 200 ML INFUS..BTL INJ ONE (22:44)
[2020-10-06] VITALS (8 sets, daily range): BP systolic 101–133; BP diastolic 60–75
[2020-10-06] MEDS ORDERED: LYRICA100 MG PO (03:21)
[2020-10-06 07:23] LABS: BASOPHILS # (AUTO) 0.1 (0.0-0.1); BASOPHILS % 0.7 % (0.0-1.0); EOSINOPHILS # (AUTO) 0.5 (0.0-0.4); EOSINOPHILS % 7.4 % (0.0-6.0); HEMATOCRIT 41.1 % (38.2-49.6); HEMOGLOBIN 13.5 g/dL (14.0-18.0); LYMPHOCYTES # (AUTO) 3.1 (1.0-3.2); LYMPHOCYTES % 43.9 % (18.0-39.1); MEAN CORPUSCULAR HEMOGLOBIN 30.2 pg (28-32); MEAN CORPUSCULAR HGB CONC 32.8 g/dL (31-35); MEAN CORPUSCULAR VOLUME 91.9 fL (81-99); MONOCYTES # (AUTO) 0.8 (0.2-0.8); MONOCYTES % 10.9 % (4.4-11.3); NEUTROPHILS # (AUTO) 2.6 (2.1-6.9); NEUTROPHILS % 36.8 % (38.7-80.0); PLATELET COUNT 224 x10e3/uL (140-360); RED BLOOD COUNT 4.47 x10e6/uL (4.3-5.7); RED CELL DISTRIBUTION WIDTH 13.9 % (11.7-14.4)
[2020-10-06 07:46] LABS: ALANINE AMINOTRANSFERASE 33 IU/L (0-55); ALBUMIN 3.9 g/dL (3.5-5.0); ALBUMIN/GLOBULIN RATIO 1.3 (0.8-2.0); ALKALINE PHOSPHATASE 84 IU/L (40-150); ANION GAP 12.3 mmol/L (8-16); BLOOD UREA NITROGEN 15 mg/dL (7-26); BUN/CREATININE RATIO 17 (6-25); CARBON DIOXIDE 28 mmol/L (22-29); CHLORIDE 105 mmol/L (98-107); CHOL/HDL RATIO 2.8 (3.9-4.7); CHOLESTEROL 143 MD/DL (0-199); EST GLOMERULAR FILTRATION RATE > 60 ML/MIN (60-); GLUCOSE 116 mg/dL (74-118); HDL CHOLESTEROL 52 MG/DL (40-60); LDL CHOLESTEROL 73 MG/DL (60-130); POTASSIUM 4.3 mmol/L (3.5-5.1); SODIUM 141 mmol/L (136-145); TRIGLYCERIDES 89 MG/DL (0-149)
[2020-10-06] MEDS: MORPHINE SULFATE INJ 4 MG/ML INJ 1ML IV PRN (07:58)
[2020-10-06] MEDS: ONDANSETRON HCL INJ 2MG/ML 2ML 2 MG/ML VIAL IV PRN (07:58)
[2020-10-06 08:00] LABS: CREATINE KINASE 199 IU/L (30-200)
[2020-10-06] MEDS ORDERED: HYDROCODONE/APAP 10MG-325MG TAB PO PRN (09:15)
[2020-10-06 09:52] LABS: THYROID STIMULATING HORMONE 2.007 uIU/mL (0.350-4.940)
[2020-10-06] MEDS ORDERED: ASPIRIN 81 MG CHEW TAB PO SCH (10:00)
[2020-10-06] MEDS ORDERED: DULOXETINE HCL 30 MG DELAYED RELEASE PO SCH (10:00)
[2020-10-06] MEDS ORDERED: PREGABALIN 50 MG CAP PO SCH (15:00)
[2020-10-06] MEDS ORDERED: REGADENOSON 0.4 MG/5 ML SYR IV ONE (15:39)
[2020-10-06] MEDS ORDERED: ENOXAPARIN SOD INJ 40 MG/0.4 ML SYR SC SCH (17:00)
[2020-10-06 19:25] LABS: CREATINE KINASE MB 2.3 ng/mL (0-5.0)
== END 2020-10-07 00:51 | disposition home or self-care (01) ==
LOC: ER 21:45 → ERHOLD 10-06 00:34 → MED/SURG 10-06 01:43
PROVIDERS: ADMIT Internal Medicine; ATTEND Internal Medicine
DX: R07.89 Other chest pain (principal); E11.9 Type 2 diabetes mellitus without complications; Z87.442 Personal history of urinary calculi; M47.816 Spondylosis without myelopathy or radiculopathy, lumbar region; Z20.822 Contact with and (suspected) exposure to COVID-19
CPT/HCPCS: 36415 ×2; 71275; 74174; 78452; 80053 ×2; 80061; 82550 ×2; 82553 ×2; 83036; 84436; 84443; 84479; 84484 ×2; 85025 ×2; 93005; 93017; 93306; 97161; 99284; A9502; G0378; J1650; J2270 ×2; J2405 ×2; J2785; J7050; Q9967; U0002

== ENCOUNTER → 2023-03-24 | Outpatient (REF) | payer MEDICARE, OTHER ==
[~2023-03-24] MED LIST changes: +LYRICA100 MG PO
== END ==
LOC: CT 08:50
PROVIDERS: ATTEND Urology
DX: N20.0 Calculus of kidney (principal); Z87.442 Personal history of urinary calculi
CPT/HCPCS: 74176